=== PATIENT | male | born 1960 | race African-American/Black ===

== ENCOUNTER 2022-07-14 17:22 | Emergency (ER) | payer MEDICAID ==
[~2022-07-14] VITALS: Ht 172.7 cm; Wt 106.8 kg
[~2022-07-14 17:22] MED LIST: AMLO-257 PO; ASCO500 PO; ASPI-1444 PO; ATOR40TA71 PO; FURO20 PO; METO25 PO; MULT-1239 PO; PANT-31 PO; ZINC220C14 PO
[2022-07-14] MEDS ORDERED: LORA-1370 PO (17:31)
[2022-07-14] MEDS ORDERED: GABA-1181 PO (17:31)
[2022-07-14] MEDS ORDERED: METO25 PO (17:31)
[2022-07-14] MEDS ORDERED: LISI-662 PO (17:31)
[2022-07-14] MEDS ORDERED: FURO40 PO (17:31)
[2022-07-14] MEDS ORDERED: CLON-441 PO (17:31)
[2022-07-14] MEDS ORDERED: ALOG12.5 PO (17:31)
[2022-07-14 18:48] VITALS: BP 152/95
[2022-07-14] MEDS ORDERED: AMOX1TAB16 PO (18:50)
== END 2022-07-14 19:05 | disposition home or self-care (01) ==
LOC: EMS 17:30
DX: L03.213 Periorbital cellulitis (principal); I10 Essential (primary) hypertension; M19.90 Unspecified osteoarthritis, unspecified site; F17.210 Nicotine dependence, cigarettes, uncomplicated; F12.90 Cannabis use, unspecified, uncomplicated
CPT/HCPCS: 99283; Z7502

== ENCOUNTER → 2024-01-16 | Emergency (ER) | payer MEDICAID ==
[~2024-01-16] VITALS: Ht 172.7 cm; Wt 107.0 kg
[~2024-01-16] MED LIST changes: +ALOG12.5 PO; +AMOX-457 PO; -ASCO500 PO; +CLON-441 PO; +DAPA5TAB PO; -FURO20 PO; +FURO40TA6 PO; +GABA-1181 PO; +LISI-662 PO; +LORA-1370 PO; -MULT-1239 PO; +PRAZ2CAP2 PO; -ZINC220C14 PO
[2024-01-16 10:26] VITALS: BP 116/62; PULSE 98; RESP 16; TEMP 99; O2SAT 98
== END | disposition home or self-care (01) ==
LOC: EMS 10:17
DX: S93.402A Sprain of unspecified ligament of left ankle, initial encounter (principal); M19.90 Unspecified osteoarthritis, unspecified site; F17.210 Nicotine dependence, cigarettes, uncomplicated; F12.90 Cannabis use, unspecified, uncomplicated; Z98.890 Other specified postprocedural states; I10 Essential (primary) hypertension; W19.XXXA Unspecified fall, initial encounter; Y93.89 Activity, other specified; Y92.89 Other specified places as the place of occurrence of the external cause; Y99.8 Other external cause status
CPT/HCPCS: 99284; 73562-TC; 73610-TC; Z7502

== ENCOUNTER 2024-10-31 11:44 | Inpatient (IN) | payer MEDICARE, MEDICAID ==
[~2024-10-31] VITALS: Ht 172.7 cm; Wt 108.0 kg
[2024-10-31 12:33] LABS: PLATELET COUNT (AUTO) 137 K/uL (150-450); RED BLOOD CELL COUNT(AUTO) 6.00 MIL/uL (4.50-5.90); RED CELL DISTRIBUTION WIDTH 22.4 % (11.5-14.5); WHITE BLOOD COUNT (AUTO) 5.1 K/uL (4.5-11.0)
[2024-10-31 12:49] LABS: RBC MORPHOLOGY COMMENT ABNORMAL RBC MORPH
[2024-10-31 12:56] LABS: CALCIUM, TOTAL 9.3 mg/dL (8.8-10.5); CREATININE 1.31 mg/dL (0.60-1.30); GLOMERULAR FILTR. RATE CALC > 60 mL/min (>60); GLUCOSE,RANDOM 117 mg/dL (70-110); SODIUM SERUM 140 mmol/L (136-145); UREA NITROGEN, BLOOD 12 mg/dL (7-18)
[2024-10-31 13:02] LABS: CREATINE KINASE, TOTAL ONLY 96 U/L (39-308)
[2024-10-31 13:04] LABS: TROPONIN I-HIGH SENSITIVITY 38 ng/L (<76)
[2024-10-31] MEDS: NITROGLYCERIN 2% (1 GM=INCH) OINTMENT PACKET TP ONE (13:39)
[2024-10-31] MEDS: FUROSEMIDE 40 MG/4 ML VIAL IVP ONE (13:39)
[2024-10-31 15:21] LABS: APPEARANCE,URINE CLEAR (CLEAR); GLUCOSE, URINE (UA) NEGATIVE (NEGATIVE); LEUKOCYTE ESTERASE ,URINE NEGATIVE (NEGATIVE); NITRATE,URINE NEGATIVE (NEGATIVE); OCCULT BLOOD,URINE NEGATIVE (NEGATIVE); SPECIFIC GRAVITIY, URINE 1.007 (1.003-1.030)
[2024-10-31] MEDS: ALBUTEROL SULFATE 2.5 MG/0.5 ML NEB SOLUTION NEB ONE (15:43)
[2024-10-31] MEDS: IPRATROPIUM BROMIDE 0.5 MG/2.5 ML NEB SOLUTION NEB ONE (15:44)
[2024-10-31 15:47] VITALS: PULSE 84; RESP 16; O2SAT 96
[2024-10-31 15:59] VITALS: PULSE 85; RESP 18; O2SAT 100
[2024-10-31] MEDS ORDERED: ZOLPIDEM TARTRATE 5 MG TABLET PO PRN (19:00)
[2024-10-31] MEDS ORDERED: ONDANSETRON HCL 4 MG/2 ML VIAL IVP PRN (19:00)
[2024-10-31] MEDS ORDERED: MAGNESIUM HYDROXIDE SUSPENSION 30 ML UDCUP PO PRN (19:00)
[2024-10-31] MEDS ORDERED: BISACODYL 10 MG RECTAL RECTAL SUPPOSITORY PR PRN (19:00)
[2024-10-31] MEDS ORDERED: MORPHINE SULFATE 2 MG/ML SYRINGE IVP PRN (19:00)
[2024-10-31] MEDS ORDERED: ACETAMINOPHEN 325 MG TABLET PO PRN (19:00)
[2024-10-31] MEDS ORDERED: INSULIN LISPRO 100 UNITS/ML SQ PRN (19:15)
[2024-10-31] MEDS ORDERED: DEXTROSE 50%-WATER 25 GM/50 ML SYRINGE IVP PRN (19:15)
[2024-10-31 21:22] VITALS: BP 159/108; PULSE 91; RESP 21; TEMP 98.2; O2SAT 90
[2024-10-31] MEDS: ATORVASTATIN CALCIUM 40 MG TABLET PO SCH (21:46)
[2024-10-31] MEDS: METOPROLOL TARTRATE 25 MG TABLET PO SCH (21:46)
[2024-10-31] MEDS: DOCUSATE SODIUM 100 MG CAPSULE PO SCH (21:46)
[2024-10-31] MEDS: GABAPENTIN 300 MG CAPSULE PO SCH (21:46)
[2024-10-31] MEDS: FUROSEMIDE 40 MG/4 ML VIAL IVP SCH (21:47)
[2024-10-31] MEDS: PRAZOSIN HCL 1 MG CAPSULE PO SCH (21:53)
[2024-10-31 23:52] VITALS: BP 96/72; PULSE 88; RESP 18; TEMP 98.2; O2SAT 100
[2024-11-01] MEDS: HEPARIN SODIUM,PORCINE 5,000 UNITS/ML VIAL SQ SCH (00:08)
[2024-11-01 04:18] VITALS: BP 90/64; PULSE 88; RESP 18; TEMP 98.4; O2SAT 98
[2024-11-01 06:49] LABS: PLATELET COUNT (AUTO) 134 K/uL (150-450); RED BLOOD CELL COUNT(AUTO) 5.56 MIL/uL (4.50-5.90); RED CELL DISTRIBUTION WIDTH 22.5 % (11.5-14.5); WHITE BLOOD COUNT (AUTO) 4.5 K/uL (4.5-11.0)
[2024-11-01 06:59] LABS: CALCIUM, TOTAL 8.3 mg/dL (8.8-10.5); CREATININE 1.25 mg/dL (0.60-1.30); GLOMERULAR FILTR. RATE CALC > 60 mL/min (>60); GLUCOSE,RANDOM 111 mg/dL (70-110); SODIUM SERUM 140 mmol/L (136-145); UREA NITROGEN, BLOOD 14 mg/dL (7-18)
[2024-11-01 08:08] LABS: RBC MORPHOLOGY COMMENT ABNORMAL RBC MORPH
[2024-11-01 08:22] VITALS: BP 97/56; PULSE 95; RESP 19; TEMP 98.4; O2SAT 96
[2024-11-01] MEDS: DAPAGLIFLOZIN PROPANEDIOL 5 MG TABLET PO SCH (09:29)
[2024-11-01] MEDS: PANTOPRAZOLE SODIUM 40 MG DR TABLET PO SCH (09:29)
[2024-11-01] MEDS: ASPIRIN 81 MG DR TABLET PO SCH (09:29)
[2024-11-01 12:00] VITALS: BP 111/89; PULSE 101; RESP 17; TEMP 98.2; O2SAT 98
[2024-11-01 16:18] VITALS: BP 121/78; PULSE 97; RESP 17; TEMP 97.8; O2SAT 98
[2024-11-01 19:37] VITALS: BP 125/80; PULSE 98; RESP 19; TEMP 98.8; O2SAT 97
[2024-11-01] MEDS: METOPROLOL TARTRATE 25 MG TABLET PO SCH (20:25)
[2024-11-01 23:21] VITALS: BP 127/83; PULSE 96; RESP 20; TEMP 98.8; O2SAT 95
[2024-11-02 03:35] VITALS: BP 137/91; PULSE 88; RESP 19; TEMP 98.4; O2SAT 95
[2024-11-02 06:30] LABS: PLATELET COUNT (AUTO) 117 K/uL (150-450); RED BLOOD CELL COUNT(AUTO) 5.61 MIL/uL (4.50-5.90); RED CELL DISTRIBUTION WIDTH 21.9 % (11.5-14.5); WHITE BLOOD COUNT (AUTO) 5.1 K/uL (4.5-11.0)
[2024-11-02 06:42] LABS: RBC MORPHOLOGY COMMENT ABNORMAL RBC MORPH
[2024-11-02 06:56] LABS: CALCIUM, TOTAL 8.6 mg/dL (8.8-10.5); CREATININE 1.30 mg/dL (0.60-1.30); GLOMERULAR FILTR. RATE CALC > 60 mL/min (>60); GLUCOSE,RANDOM 94 mg/dL (70-110); SODIUM SERUM 140 mmol/L (136-145); UREA NITROGEN, BLOOD 20 mg/dL (7-18)
[2024-11-02 08:34] VITALS: BP 134/81; PULSE 75; RESP 18; TEMP 98.2; O2SAT 94
[2024-11-02 11:05] VITALS: BP 128/79; PULSE 78; RESP 18; TEMP 98.2; O2SAT 96
[2024-11-02 14:57] VITALS: BP 123/86; PULSE 93; RESP 18; TEMP 98.2; O2SAT 95
[2024-11-02] MEDS: HYDROCODONE/ACETAMINOPHEN 5-325 MG TABLET PO PRN (16:12)
[2024-11-02 20:34] VITALS: BP 99/76; PULSE 84; RESP 18; TEMP 98.2; O2SAT 92
[2024-11-02 23:46] VITALS: BP 138/98; PULSE 92; RESP 18; TEMP 98.5; O2SAT 98
[2024-11-03 05:39] VITALS: BP 107/75; PULSE 78; RESP 18; TEMP 98.4; O2SAT 100
[2024-11-03 05:57] LABS: PLATELET COUNT (AUTO) 115 K/uL (150-450); RED BLOOD CELL COUNT(AUTO) 5.91 MIL/uL (4.50-5.90); RED CELL DISTRIBUTION WIDTH 22.1 % (11.5-14.5); WHITE BLOOD COUNT (AUTO) 4.8 K/uL (4.5-11.0)
[2024-11-03 06:22] LABS: CALCIUM, TOTAL 9.3 mg/dL (8.8-10.5); CREATININE 1.30 mg/dL (0.60-1.30); GLOMERULAR FILTR. RATE CALC > 60 mL/min (>60); GLUCOSE,RANDOM 100 mg/dL (70-110); SODIUM SERUM 138 mmol/L (136-145); UREA NITROGEN, BLOOD 19 mg/dL (7-18)
[2024-11-03 07:21] VITALS: BP 112/90; PULSE 87; RESP 18; TEMP 98.1; O2SAT 99
[2024-11-03 11:31] VITALS: BP 114/91; PULSE 81; RESP 18; TEMP 98.4; O2SAT 96
[2024-11-03 15:19] VITALS: BP 111/73; PULSE 69; RESP 18; TEMP 98.6; O2SAT 95
[2024-11-03 20:27] VITALS: BP 109/71; PULSE 80; RESP 16; TEMP 97.7; O2SAT 80
[2024-11-03 23:18] VITALS: BP 120/81; PULSE 90; RESP 21; TEMP 97.7; O2SAT 95
[2024-11-04 03:38] VITALS: BP 146/99; PULSE 85; RESP 19; TEMP 98.4; O2SAT 97
[2024-11-04 06:26] LABS: PLATELET COUNT (AUTO) 102 K/uL (150-450); RED BLOOD CELL COUNT(AUTO) 5.91 MIL/uL (4.50-5.90); RED CELL DISTRIBUTION WIDTH 22.0 % (11.5-14.5); WHITE BLOOD COUNT (AUTO) 4.0 K/uL (4.5-11.0)
[2024-11-04 06:49] LABS: CALCIUM, TOTAL 9.5 mg/dL (8.8-10.5); CREATININE 1.34 mg/dL (0.60-1.30); GLOMERULAR FILTR. RATE CALC > 60 mL/min (>60); GLUCOSE,RANDOM 104 mg/dL (70-110); SODIUM SERUM 139 mmol/L (136-145); UREA NITROGEN, BLOOD 22 mg/dL (7-18)
[2024-11-04 08:23] VITALS: BP 113/77; PULSE 81; RESP 18; TEMP 98.4; O2SAT 97
[2024-11-04] MEDS: FUROSEMIDE 40 MG TABLET PO SCH (08:49)
[2024-11-04] MEDS: FUROSEMIDE 40 MG/4 ML VIAL IVP ONE (11:34)
[2024-11-04 12:16] VITALS: BP 113/96; PULSE 91; RESP 18; TEMP 98.6; O2SAT 97
[2024-11-04 13:42] LABS: ABG BASE EXCESS 8.3 mmol/L (-2.0-3.0); ABG CARBOXYHEMOGLOBIN 2.0 % (0.5-1.5); ABG HCO3 30.2 mmol/L (21.0-28.0); ABG METHEMOGLOBIN 0.2 % (0.0-1.5); ABG OXYGEN CONTENT 21.6 mL/dL (15.0-23.0); ABG OXYGEN SATURATION 90.2 % (94.0-98.0); ABG OXYHEMOGLOBIN 88.2 % (94.0-98.0); ABG PCO2 50 mmHg (32.0-48.0); ABG PH 7.429 (7.350-7.450); ABG TOTAL HEMOGLOBIN 17.5 G/dL (13.5-17.5); FRACTIONATED INSPIRED OXYGEN 21.0 % (21-100.0); SOURCE, BLOOD GAS ARTERIAL; TEMPERATURE, FAHRENHEIT, BG 98.6 FAHREN (96.0-98.6)
[2024-11-04 13:44] LABS: ALLEN TEST, BLOOD GAS POS; PO2, ARTERIAL BG 54.9 mmHg (83.0-108.0); SITE, BLOOD GAS RT RADIAL
[2024-11-04 20:00] VITALS: BP 118/87; PULSE 92; RESP 18; TEMP 97.8; O2SAT 95
[2024-11-05] VITALS (13 sets, daily range): BP systolic 99–161; BP diastolic 56–112; PULSE 76–92; RESP 16–20; TEMP 97.6–98.8; O2SAT 92–98
[2024-11-05 06:55] LABS: PLATELET COUNT (AUTO) 110 K/uL (150-450); RED BLOOD CELL COUNT(AUTO) 5.92 MIL/uL (4.50-5.90); RED CELL DISTRIBUTION WIDTH 22.4 % (11.5-14.5); WHITE BLOOD COUNT (AUTO) 4.6 K/uL (4.5-11.0)
[2024-11-05 07:06] LABS: CALCIUM, TOTAL 9.7 mg/dL (8.8-10.5); CREATININE 1.30 mg/dL (0.60-1.30); GLOMERULAR FILTR. RATE CALC > 60 mL/min (>60); GLUCOSE,RANDOM 96 mg/dL (70-110); SODIUM SERUM 139 mmol/L (136-145); UREA NITROGEN, BLOOD 22 mg/dL (7-18)
[2024-11-05 07:18] LABS: RBC MORPHOLOGY COMMENT ABNORMAL RBC MORPH
[2024-11-05] MEDS ORDERED: LIDOCAINE/PF 1% 30 ML VIAL ONE (07:21)
[2024-11-05] MEDS ORDERED: SODIUM BICARBONATE 50 MEQ/50 ML VIAL ONE (07:21)
[2024-11-05] MEDS ORDERED: IOHEXOL 300 MG/ML 100 ML VIAL ONE (07:21)
[2024-11-05] MEDS ORDERED: HEPARIN SODIUM 1000 UNITS/NS 1,000 ML ONE (07:22)
[2024-11-05] MEDS ORDERED: VERAPAMIL HCL 2.5 MG/ML 2 ML VIAL ONE (07:46)
[2024-11-05] MEDS ORDERED: NITROGLYCERIN 50 MG/D5% WATER 0 ML ONE (07:47)
[2024-11-05] MEDS ORDERED: MIDAZOLAM HCL 2 MG/2 ML VIAL ONE ×2 (08:31→09:22)
[2024-11-05] MEDS ORDERED: FentaNYL CITRATE PF 100 MCG/2 ML VIAL ONE (08:31)
[2024-11-05] MEDS: LIDOCAINE 1% 30 ML/SOD BICARB 8.4% 4 ML SQ ONE (09:35)
[2024-11-05] MEDS: MIDAZOLAM HCL 2 MG/2 ML VIAL IVP ONE ×2 (09:35→09:54)
[2024-11-05] MEDS: FentaNYL CITRATE PF 100 MCG/2 ML VIAL IVP ONE ×2 (09:38→09:54)
[2024-11-05] MEDS ORDERED: ADENOSINE IV ONE (09:45)
[2024-11-05] MEDS ORDERED: SODIUM CHLORIDE 0.9% IV ONE (09:45)
[2024-11-05] MEDS: ADENOSINE IV ONE (09:53)
[2024-11-05] MEDS: SODIUM CHLORIDE 0.9% IV ONE (09:53)
[2024-11-05] MEDS: HEPARIN SODIUM 1000 UNITS/NS 1,000 ML IARTER ONE (09:54)
[2024-11-05] MEDS: IOHEXOL 300 MG/ML 100 ML VIAL IARTER ONE (10:17)
[2024-11-05] MEDS: METOPROLOL SUCCINATE 25 MG ER TABLET PO SCH (11:11)
[2024-11-05] MEDS: SPIRONOLACTONE 25 MG TABLET PO SCH (11:12)
[2024-11-05] MEDS: LOSARTAN POTASSIUM 25 MG TABLET PO SCH (11:12)
[2024-11-05] MEDS ORDERED: ATOR40TA28 PO (12:09)
[2024-11-05] MEDS ORDERED: LORA10TA7 PO (12:09)
[2024-11-06] VITALS: BP 109/83; PULSE 82; RESP 18; TEMP 97.9; O2SAT 98
[2024-11-06 04:00] VITALS: BP 112/79; PULSE 84; RESP 18; TEMP 98.2; O2SAT 97
[2024-11-06 07:09] VITALS: BP 109/77; PULSE 80; RESP 18; TEMP 98.6; O2SAT 98
[2024-11-06] MEDS ORDERED: FLUT1BLS15 IH (08:36)
[2024-11-06] MEDS ORDERED: FURO40TA5 PO (08:36)
[2024-11-06] MEDS ORDERED: LOSA-417 PO (08:36)
[2024-11-06] MEDS ORDERED: SPIR-37 PO (08:36)
[2024-11-06] MEDS ORDERED: METO25XL PO (08:36)
[2024-11-06] MEDS: BUDESONIDE 0.5 MG/2 ML NEB SOLUTION NEB SCH (09:00)
[2024-11-06 11:25] VITALS: BP 107/76; PULSE 79; RESP 18; TEMP 98; O2SAT 96
[2024-11-06 15:56] VITALS: BP 109/77; PULSE 56; RESP 18; TEMP 98; O2SAT 97
== END 2024-11-06 17:00 | disposition home health service (06) | DRG 286 ==
LOC: EMS 11:49 → EDH 16:45 → 5S 20:51 → 5N 11-03 20:59
PROVIDERS: ADMIT Internal Medicine; ATTEND Internal Medicine
PROC: 4A023N8 Measurement of Cardiac Sampling and Pressure, Bilateral, Percutaneous Approach (ICD-10-PCS; principal; 2024-11-05)
PROC: B2111ZZ Fluoroscopy of Multiple Coronary Arteries using Low Osmolar Contrast (ICD-10-PCS; 2024-11-05)
DX: I13.0 Hypertensive heart and chronic kidney disease with heart failure and stage 1 through stage 4 chronic kidney disease, or unspecified chronic kidney disease (principal); I50.23 Acute on chronic systolic (congestive) heart failure; J96.01 Acute respiratory failure with hypoxia; K21.9 Gastro-esophageal reflux disease without esophagitis; F17.210 Nicotine dependence, cigarettes, uncomplicated; E78.5 Hyperlipidemia, unspecified; E11.22 Type 2 diabetes mellitus with diabetic chronic kidney disease; N18.9 Chronic kidney disease, unspecified; G47.33 Obstructive sleep apnea (adult) (pediatric); I27.20 Pulmonary hypertension, unspecified; F12.90 Cannabis use, unspecified, uncomplicated; Z79.82 Long term (current) use of aspirin; Z79.899 Other long term (current) drug therapy
CPT/HCPCS: 71045; 80048; 81003; 82550; 82805; 83880; 84484; 85025; 85610; 85730; 93005; 93306; 93460; 94640; 97162; 99285; G0378; J0153; J1644; J1938; J2250; J3010; J3490; J7050; Q9967; 36415-L1; 36415-TC; J7613; Z7610